=== PATIENT | female | born 1975 | race Caucasian/White ===

== ENCOUNTER → 2021-03-13 17:59 | Outpatient (CLI) | payer MEDICARE, MEDICAID, SELFPAY ==
[2021-03-13 18:40] LABS: Amphetamine Urine VISTA NEGATIVE (<1000 ng/mL); Barbiturate Urine VISTA NEGATIVE (< 200 ng/mL); Benzodiazepine Urine VISTA NEGATIVE (< 200 ng/mL); Cocaine Urine VISTA NEGATIVE (< 300 ng/mL); Ecstacy Urine VISTA NEGATIVE (< 500 ng/mL); Methadone Urine VISTA NEGATIVE (< 300 ng/mL); PCP Urine VISTA NEGATIVE (< 25 ng/mL); THC Urine VISTA NEGATIVE (< 50 ng/mL); Vista UDS pH Range 5
== END ==
PROVIDERS: Visit Provider Anesthesiology Pain Medicine
DX: F11.20 Opioid dependence, uncomplicated (principal)
CPT/HCPCS: 80307

== ENCOUNTER 2021-08-03 08:50 | Day surgery (SDC) | payer MEDICARE, MEDICAID, SELFPAY ==
[2021-08-03] VITALS (12 sets, daily range): BP systolic 80–142; BP diastolic 63–99; PULSE 74–83; RESP 16–18; TEMP 36.3–36.8; O2SAT 97–100; BMI 32.2
--- NOTE | 2021-08-03 09:40 | RAD_ITS ---
PROCEDURE: Pain pump insertion. DATE OF EXAMINATION: 01/31/2022. INDICATION: Female, 46 years old. Chronic back pain. FLUOROSCOPY TIME (if supplied): (51 seconds.) minutes/seconds. 4 images were obtained. RAD/Spine 1 View Any Level IMPRESSION: Intraoperative imaging provided for pain pump insertion. Electronically Signed: Soto Akers MD at 14:12 [facility] ,
[2021-08-03 09:48] LABS: Internal QC Validated? YES +Cl - CLEAR BKGD; Pregnancy, Urine Negative Negative
[2021-08-03] MEDS: Lactated Ringers 1,000 ML 15 ML IV (09:58)
[2021-08-03] MEDS: 0.9% Normal Saline (Pres. free 10 ML Vial (11:06)
[2021-08-03] MEDS: Bupivacaine 0.25% 30 ML Vial (11:06)
[2021-08-03] MEDS: Lidocaine 1%/Epi 1:200 (30ml) 30 ML AMPUL (11:06)
== END 2021-08-03 23:59 | disposition home or self-care (01) ==
LOC: SDC 08:59 → AC 09:00
PROVIDERS: Anesthesiology; PCP Family Medicine; Referring Provider Anesthesiology Pain Medicine; Visit Provider Anesthesiology Pain Medicine
PROC: (CPT 62362; principal; 2021-08-03 09:25)
DX: M96.1 Postlaminectomy syndrome, not elsewhere classified (principal); M19.90 Unspecified osteoarthritis, unspecified site; Z79.899 Other long term (current) drug therapy; I10 Essential (primary) hypertension
CPT/HCPCS: 62362; 00630; 72020; 76000; 81025; J7120; A4216; J2274; J2405; J3490

== ENCOUNTER → 2023-03-25 | Outpatient (CLI) | payer OTHER, MEDICARE, MEDICAID, SELFPAY ==
[2023-03-25 13:22] LABS: Amphetamine Urine VISTA NEGATIVE (<1000 ng/mL); Barbiturate Urine VISTA NEGATIVE (< 200 ng/mL); Benzodiazepine Urine VISTA NEGATIVE (< 200 ng/mL); Cocaine Urine VISTA NEGATIVE (< 300 ng/mL); Ecstacy Urine VISTA NEGATIVE (< 500 ng/mL); Methadone Urine VISTA NEGATIVE (< 300 ng/mL); PCP Urine VISTA NEGATIVE (< 25 ng/mL); THC Urine VISTA NEGATIVE (< 50 ng/mL); Vista UDS pH Range 6
== END | disposition home or self-care (01) ==
LOC: LAB 11:57
PROVIDERS: PCP Family Medicine; Referring Provider Anesthesiology Pain Medicine; Visit Provider Anesthesiology Pain Medicine
DX: F11.20 Opioid dependence, uncomplicated (principal)
CPT/HCPCS: 80307

== ENCOUNTER 2023-04-10 15:50 | Emergency (ER) | payer MEDICARE, MEDICAID, SELFPAY ==
[2023-04-10 15:52] VITALS: BP 147/91; PULSE 95; RESP 18; TEMP 36.8; O2SAT 100; BMI 38.9
--- NOTE | 2023-04-10 17:09 | EKG12_ITS ---
Test Reason : PAIN Blood Pressure : / mmHG Vent. Rate : 088 BPM Atrial Rate : 088 BPM P-R Int : 168 ms QRS Dur : 106 ms QT Int : 400 ms P-R-T Axes : 057 031 058 degrees QTc Int : 484 ms Normal sinus rhythm Nonspecific T wave abnormality Prolonged QT Abnormal ECG Confirmed by CYNTHIA SHAH, GORDON ([id number]), index editor JULIANNA BUTTS ([id number]) on 04/15/2023 12:22:01 PM Referred By: Confirmed By:GORDON MARIE MD
--- NOTE | 2023-04-10 17:09 | EDS_ITS ---
HPI History of Present Illness Chief Complaint: Other, Pain/Inj Detail of Chief Complaint: Staying to have her pain pump removed and complaint of shortness of breath Informant: patient Narrative Narrative: Patient presents to the emergency department with complaint of some shortness of breath with exertion and generalized weakness. She complains of intermittent chest pain. Patient believes that the cause of her symptoms is her pain pump which she has had for the last 2 years. Patient wants to have her pain pump removed. Patient states that she has an advocate and has not been able to make an appointment with her apprentice painter brush. Prior to my evaluating the patient nursing staff did call her apprentice painter brush office and we were told all she needed to do was make an appointment with his office and they would be happy to discuss removing her pain pump. [facility] Medical History (Updated 04/10/23 @ 19:[address] Yao Larios, ) Ambulates with cane Anxiety Arthritis Back pain Cardiology follow-up encounter COVID DDD (degenerative disc disease), cervical DDD (degenerative disc disease), lumbar Dietary restriction Gastric reflux History of CHF (congestive heart failure) History of echocardiogram History of GI bleed History of pain when walking History of stress test History of ulceration Hypertension Leg cramps Migraine headache Restless legs Shortness of breath on exertion Smoker Thyroid disease Wears glasses Wears partial dentures Home Medications albuterol (refill) 90 mcg/actuation aerosol inhaler 90 mcg inhalation PRN PRN SOB 08/01/21 [History Last Taken Unknown] alprazolam 1 mg tablet (Xanax) 1 mg PO BID PRN Anxiety 08/01/21 [History Last Taken Unknown] carvedilol 12.5 mg tablet (Coreg) 12.5 mg PO BID 08/01/21 [History Last Taken 08/03/21 07:00] dextroamphetamine-amphetamine 20 mg tablet (Adderall) 20 mg PO BID 08/01/21 [History Last Taken Unknown] ergocalciferol (vitamin D2) 1,250 mcg (50,000 unit) capsule (Vitamin D2) 1,250 mcg PO FR 08/01/21 [History Last Taken Unknown] furosemide 40 mg tablet 40 mg PO BID 08/01/21 [History Last Taken 08/03/21 07:0 0] levothyroxine 100 mcg tablet 100 mcg PO DAILY 08/01/21 [History Last Taken Unknown] lisinopril 5 mg tablet 5 mg PO DAILY 08/01/21 [History Last Taken Unknown] omeprazole 20 mg tablet,delayed release 20 mg PO DAILY 08/01/21 [History Last Taken Unknown] oxycodone myristate 18 mg capsule sprinkle extended release 12hr(DON'T CRUSH) (Xtampza ER) 18 mg PO BID 08/01/21 [History Last Taken Unknown] potassium chloride 10 mEq tablet,extended release 20 meq PO DAILY 08/01/21 [History Last Taken Unknown] rizatriptan 10 mg tablet 10 mg PO Q2H PRN MIGRAINES 08/01/21 [History Last Taken Unknown] Allergy/AdvReac Type Severity Reaction Status Date / Time hydromorphone [From Dilaudid] AdvReac PT UNSURE Verified 04/10/23 15:52 OF REACTION Surgical History (Updated 08/01/21 @ 11:05 by Margy Riley) History of History of laparoscopic cholecystectomy Hx of decompressive lumbar laminectomy Hx of fusion of cervical spine Social History Smoking Status: Current every day smoker tobacco type: cigarettes ROS ROS ED Review of Systems ROS Unobtainable: other Constitutional Constitutional ED: Reports lethargy; Denies chills, fever(s), sweats or weight loss Eyes Eyes: Denies blurry vision, change in vision or diplopia ENT ENT ED: Denies rhinorrhea or sore throat Cardiovascular Cardiovascular: Reports chest pain; Denies orthopnea or racing heartbeat Respiratory/Chest Respiratory/Chest: Reports dyspnea and dyspnea on exertion; Denies cough, orthopnea or sputum Gastrointestinal Gastrointestinal: Denies abdominal pain, diarrhea, nausea or vomiting Genitourinary Genitourinary ED: Denies dysuria, hematuria or urinary frequency Musculoskeletal Musculoskeletal: Denies arthralgias, back pain, myalgias or neck pain Integumentary Denies abscess, Abrasions or rash Neurologic Neurologic: Denies headache(s) or weakness Psychiatric Psychiatric: Denies anxiety, depression or suicidal thoughts Endocrine Endocrinology: Denies polydipsia, polyphagia or polyuria Hematologic/Lymphatic Hematologic/Lymphatic: Denies easy bleeding, easy bruising or lymphadenopathy Allergic/Immunologic Allergic/Immunologic ED: Denies mouth swelling, tongue swelling or urticaria EXAM Physical Exam Const Vital Signs: 04/10/23 15:52 04/10/23 17:04/10/23 18:43 Temperature 98.3 F Temperature Source Temporal Pulse Rate 95 81 Respiratory Rate 18 16 Respiratory Effort Normal Non-Labored Respiratory Pattern Normal Blood Pressure 147/91 H 137/62 H Blood Pressure Mean 109 87 Pulse Ox 100 97 Oxygen Delivery Method Room Air Room Air Positive well nourished and well developed General Appearance ED: well developed and NAD HEENT Reports TM's clear and moist mucous membranes normocephalic and atraumatic; Negative for trauma or tenderness Tympanic Membrane ED: Yes TM's clear Eyes PERRL and EOMs intact bilaterally General Eye ED: Negative for pale conjunctiva or scleral icterus Neck no lymphadenopathy, supple and no JVD General: Negative for tenderness Chest Wall inspection of chest normal and palpation of chest normal Chest: Negative for tenderness Resp normal respiratory effort and clear to auscultation bilaterally Effort and Inspection: Negative for respiratory distress or pain with movement Auscultation: Negative for rhonchi, wheezes or diminished lung sounds Cardio regular rate, regular rhythm, S1 normal heart sound, S2 normal heart sound and no murmurs Peripheral Pulses: pulses 2+ throughout GI normal to inspection, nondistended, normoactive bowel sounds, soft to palpation, non-tender, non-distended and no masses Back/Spine no CVA tenderness and no thoracic nor lumbar tenderness Extremity normal to inspection General Extremety ED: Negative for edema General Extremity: Negative for edema Neuro oriented x3, CN's II-XII intact bilaterally, no sensory deficits noted and gait normal Sensorium / Orientation: awake, alert, oriented to person, oriented to place and oriented to time Motor Exam: strength 5/5 throughout and strength abnormal Psych mental status grossly normal Skin no rashes or lesions noted and no wounds MDM MDM MDM Narrative Medical decision making narrative: Patient presents requesting that her pain pump be removed which I explained to her would not happen in the emergency department. She has had this pain pump for 2 years and her apprentice painter brush would be happy to see her in the office and discuss taking it out. Patient then started complaining of exertional dyspnea and fear that she was in congestive heart failure. Clinically she did not appear to be in congestive heart failure. I did obtain an EKG that showed a sinus rhythm with a rate of [address] changes. CBC with differential was unremarkable. Chemistries unremarkable. Troponin was normal and her BNP was normal. Chest x-ray was unremarkable. This point discussed results with patient. She does have a low potassium of 2.3. I did order 60 mEq p.o. Patient does take daily potassium and states she did not take it today and she does take Lasix. Patient states she has been low before. I discussed admitting her for IV potassium and she states that she does not want to be admitted and wants to go home she will follow-up with her primary care physician to check her levels again within the week. Our nursing staff called patient's apprentice painter brush Dr. Joy and made her an appointment for April 22 at 1:45 PM for follow-up regarding her morphine pain pump Lab Data Attestation: I reviewed the patient's lab results. Labs: Laboratory Results - last 24 hr 04/10/23 17:30 WBC 10.9 RBC 4.89 Hgb 14.0 Hct 42.8 MCV 87.5 MCH 28.6 MCHC 32.7 RDW Std Deviation 40.4 RDW Coeff of Augustine 12.5 Plt Count 247 MPV 9.6 Immature Gran % (Auto) 0.700 Neut % (Auto) 67.6 Lymph % (Auto) 22.3 [place]oshone % (Auto) 7.1 Eos % (Auto) 1.9 Baso % (Auto) 0.4 Absolute Neuts (auto) 7.4 Absolute Lymphs (auto) 2.43 Nucleated RBC % 0 Sodium 137 Potassium 2.3 L* Chloride 99 Carbon Dioxide 31.0 Anion Gap 7 BUN 19 H Creatinine 0.92 Estim Creat Clear Calc 58.50 Est GFR (MDRD) Af Amer 84 Est GFR (MDRD) Non-Af 69 BUN/Creatinine Ratio 20.7 H Glucose 96 Calcium 9.0 Troponin I High Sens 9 B-Natriuretic Peptide 6.2 Radiography Diagnostic Testing: Clinical Impression(s) from Imaging Studies Chest X-Ray 04/10/23 17:17 IMPRESSION: No radiographic evidence of acute cardiopulmonary disease. Electronically Signed: Lucia Watson MD at 17:51 EDT Reading Location ID and State: [id number] / Tel , Service support , 1 view chest x-ray obtained interpreted by myself as no evidence of infiltrate or pneumothorax or acute disease process. Radiology in agreement. EKG Initial EKG: Attestation: I personally reviewed and interpreted this EKG as follows: Comments: Sinus rhythm with a rate of [address] changes Discharge Plan Triage Chief Complaint: Other, Pain/Inj ED Provider: Yao Larios Dx/Rx/DC Orders Clinical Impression: Acute dyspnea, Acute hypokalemia Instructions: ED Dyspnea, ED Hypokalemia Prescriptions: No Action furosemide 40 mg Tablet 40 mg PO BID carvedilol [Coreg] 12.5 mg Tablet 12.5 mg PO BID alprazolam [Xanax] 1 mg Tablet 1 mg PO BID PRN (Reason: Anxiety) rizatriptan 10 mg Tablet 10 mg PO Q2H PRN (Reason: MIGRAINES) potassium chloride 10 mEq Tablet Extended Release 20 meq PO DAILY levothyroxine 100 mcg Tablet 100 mcg PO DAILY dextroamphetamine-amphetamine [Adderall] 20 mg Tablet 20 mg PO BID lisinopril 5 mg Tablet 5 mg PO DAILY ergocalciferol (vitamin D2) [Vitamin D2] 1,250 mcg (50,000 unit) Capsule 1,250 mcg PO FR albuterol (refill) 90 mcg/actuation Aerosol 90 mcg INHALATION PRN PRN (Reason: SOB) omeprazole 20 mg Tablet,Delayed Release (Dr/Ec) 20 mg PO DAILY Xtampza ER 18 mg Cap,Sprinkl,Er12hr(Dont Crush) 18 mg PO BID Primary Care Provider: Casey Davis Referrals: Casey Davis MD [Primary Care Provider] - 3-5 Days Activity Restrictions/Additional Instructions: Follow-up with your primary care physician to have your potassium checked again within the next 3 to 5 days. Please take your daily potassium. Disposition Disposition: Home, Self Care Discharge Date/Time: 04/10/23 19:55
--- NOTE | 2023-04-10 17:17 | RAD_ITS ---
INDICATION: dyspnea EXAMINATION/TECHNIQUE: X-RAY - XR Chest 1 View COMPARISON: FINDINGS: LINES/DEVICES: None. LUNGS: No consolidation, edema or effusion. No pneumothorax. MEDIASTINUM AND CARDIOVASCULAR STRUCTURES: Cardiac silhouette not enlarged. Central airways and mediastinal contour are unremarkable. BONES AND SOFT TISSUES: Unremarkable. RAD/Chest 1 View (Portable) IMPRESSION: No radiographic evidence of acute cardiopulmonary disease. Electronically Signed: Lucia Watson MD at 17:51 EDT Reading Location ID and State: [id number] / Tel , Service support ,
--- NOTE | 2023-04-10 17:21 | ED.RN ---
no old ekgs.
[2023-04-10 17:42] LABS: Absolute Lymphocyte Count 2.43 X10^3/uL (0.83-4.51); Absolute Neutrophil Count 7.4 X10^3/uL (2.0-7.7); Basophil# 0.04 X10^3/uL; Basophil% 0.4 % (0-1); Eosinophil# 0.21 X10^3/uL; Eosinophils% 1.9 % (0-5); Hematocrit 42.8 % (37-47); Lymphocyte # 2.43 X10^3/ul (0.83-4.51); Lymphocyte % 22.3 % (19-41); Mean Corp Hgb Conc 32.7 g/dL (32-36); Mean Corpuscular Hgb 28.6 pg (27.0-32.0); Mean Corpuscular Volume 87.5 fL (81-99); Mean Platelet Vol. 9.6 fl (6.2-12.0); Monocyte# 0.78 X10^3/uL; Monocyte% 7.1 % (0-10); NRBC Flagged by Analyzer 0 % (0-5); Neutrophil # 7.38 X10^3/uL (2.7-7.7); Neutrophil % 67.6 % (47-70); Platelet Count 247 K/mm3 (150-450); RBC Distribution Width CV 12.5 % (11.6-14.6); RBC Distribution Width SD 40.4 fl (35.1-43.9); Red Blood Count 4.89 M/mm3 (4.2-5.4); White Blood Count 10.9 K/mm3 (4.4-11.0)
[2023-04-10 18:05] LABS: Anion Gap 7 (5-15); BUN 19 mg/dL (7-18); BUN/Creat Ratio 20.7 RATIO (10-20); Chloride 99 mmol/L (98-107); Creatinine, Serum 0.92 mg/dL (0.55-1.02); EST Glomerular Filtration Rate 69 mL/min (>60); Est Glom Filt Rate - Afr Amer 84 mL/min (>60); Glucose 96 mg/dL (74-106); Potassium 2.3 mmol/L (3.5-5.1); Sodium Level 137 mmol/L (136-145); Troponin-I HS 9 pg/mL (3.0-54.0)
[2023-04-10 18:07] LABS: BNP,B-Type NATRIURETIC PEPTIDE 6.2 pg/mL (0-100)
[2023-04-10 18:43] VITALS: BP 137/62; PULSE 81; RESP 16; O2SAT 97
[2023-04-10] MEDS: Potassium Chloride Oral Tablet 20 MEQ 60 MEQ PO (19:52)
== END 2023-04-10 19:55 | disposition home or self-care (01) ==
PROVIDERS: Emergency Provider Emergency Medicine; PCP Family Medicine; Visit Provider Emergency Medicine
DX: R06.02 Shortness of breath (principal); I11.0 Hypertensive heart disease with heart failure; I50.9 Heart failure, unspecified; E87.6 Hypokalemia; F17.210 Nicotine dependence, cigarettes, uncomplicated; R07.9 Chest pain, unspecified
CPT/HCPCS: 71045; 80048; 83880; 84484; 85025; 93005; 99284

== ENCOUNTER 2024-02-20 10:46 | Day surgery (SDC) | payer MEDICARE, MEDICAID, SELFPAY ==
[2024-02-20] VITALS (8 sets, daily range): BP systolic 86–109; BP diastolic 56–79; PULSE 72–85; RESP 16–20; TEMP 36.2–37.1; O2SAT 97–100; BMI 35.9
[2024-02-20] MEDS: Lactated Ringers 1,000 ML 15 ML IV (11:32)
[2024-02-20 11:35] LABS: Internal QC Validated? YES +Cl - CLEAR BKGD; Pregnancy, Urine Negative Negative
--- NOTE | 2024-02-20 12:18 | PCM.PRE.AN2 ---
ASA Classification* ASA Classification ASA Classification: 3 Assessment & Plan Anesthesia* Anesthesia Assessment Anesthesia Assessment: Discussed sedation and/or anesthesia options, risks, benefits, and alternatives with patient/parents/legal guardian/POA. Questions invited. The patient/parents/legal guardian/POA seems to understand and agrees to proceed with anesthesia plan. Reviewed the physical assessment, medical history, allergy history and patient home medications list prior to surgery/procedure/anesthetic and documented any changes. Performed airway and anesthesia risk assessments. Anesthesia Type Anesthesia Type: MAC (has symptoms of increased icp per patient and mother, nuerology aware) Anesthesia Focused Assessment* Temperature: 98.8 F Pulse Rate: 85 Blood Pressure: 109/77 Respiratory Rate: 16 Pulse Ox: 98 Airway Assessment Mouth opens: >3 cm Mallampati Score: II Focused Labs Anesthesia Preop lab: CBC WBC 10.9 K/mm3 (4.4-11.0) 04/10/23 17:30 RBC 4.89 M/mm3 (4.2-5.4) 04/10/23 17:30 Hgb 14.0 g/dL (12.0-15.0) 04/10/23 17:30 Hct 42.8 % (37-47) 04/10/23 17:30 Plt Count 247 K/mm3 (150-450) 04/10/23 17:30 CHEMISTRY Potassium 2.3 mmol/L (3.5-5.1) L* 04/10/23 17:30 Sodium 137 mmol/L (136-145) 04/10/23 17:30 BUN 19 mg/dL (7-18) H 04/10/23 17:30 Creatinine 0.92 mg/dL (0.55-1.02) 04/10/23 17:30 Glucose 96 mg/dL (74-106) 04/10/23 17:30 COAG Urine Test Negative Negative 02/20/24 11:15 Pre-Assessment Diagnosis/Proposed Procedure Planned Operative Procedure(s): PAIN PUMP REMOVAL Anesthesia History Anesthesia History - professional skater: Anesthesia History - professional skater Hx Hospitalization Yes: 01/2024 SEIZURE 02/13/24 11:51 Any Problems With Anesthesia No 02/13/24 11:51 Cholinesterase deficiency No 02/13/24 11:51 You/Your Family Experience No 02/13/24 11:51 fever (hyperthermia) with Relationship Recent Exposure to Contagious No 02/20/24 11:22 Disease Does patient have nerve No: PAIN PUMP NOT WORKING 02/13/24 11:51 stimulator Patient instructed to have device shut off --Does patient have Pacemaker No 02/20/24 11:22 or ICD? When Was Last Pacemaker Check QUESTION #4 FULL TEXT: You/Your Family Experience fever (hyperthermia) with Anesthesia Last Oral Intake Last Oral intake: Last Oral Intake NPO since 05:00 02/20/24 11:22 Meds taken in AM with sips of Yes 02/20/24 11:22 water? Meds patient instructed to take am of surgery PONV PONV - professional skater: PONV - professional skater Female Yes 02/13/24 11:51 HX of Motion Sickness Yes 02/13/24 11:51 HX of N/V After Surgery No 02/13/24 11:51 Non-Smoker No 02/13/24 11:51 Duration of Surgery greater No 02/13/24 11:51 than 60 minutes Number of Risk Factors 2 02/13/24 11:51 PONV Score Moderate Risk 02/13/24 11:51 Height & Weight Height & Weight: Anesthesia: Height & Weight Height 5 ft 2 in 02/20/24 11:22 Weight: 89.2 kg 02/20/24 11:22 Body Mass Index (BMI) 35.9 02/20/24 11:22 Respiratory Assessment Respiratory Assessment - professional skater: Respiratory Tract Infection Hx - professional skater Hx Respiratory Tract Infection No 02/13/24 11:51 STOP Sleep Apnea STOP Sleep Apnea - professional skater: STOP Sleep Apnea - professional skater Hx Hypertension Yes: CONTROLLED WITH MED 02/13/24 11:51 Hx Sleep Apnea No 02/13/24 11:51 CPAP BIPAP Do you snore loudly (louder Yes 02/13/24 11:51 than talking or can be heard Do you often feel tired/ Yes 02/13/24 11:51 fatigued/ sleepy during daytime? Has anyone observed you stop No 02/13/24 11:51 breathing during sleep? STOP Results Positive 02/13/24 11:51 QUESTION #5 FULL TEXT : Do you snore loudly (louder than talking or can be heard through closed doors)? Tobacco Use History Tobacco Use History - professional skater: Tobacco Use History - professional skater Tobacco Use Smoking Status Current some day smoker 02/13/24 11:51 Hx Tobacco Use Yes 02/13/24 11:51 Years Smoking Packs Smoked per Day Smoking Cessation Date was within the last 15 years Hx Smoking Cessation Date Hx Smoking Cessation No 02/13/24 11:51 Counseling Hematologic Medial History Hematologic Hx - professional skater: Hematologic Medical Hx - shopper Hx of Blood Transfusion Yes 02/13/24 11:51 Hx of Transfusion in last 3 No 02/13/24 11:51 Months Date of Last Transfusion (if within last 3 months) Ever experience any problems No 02/13/24 11:51 with transfusion(s)? Specify any problems Hx of Preganancy in last 3 No 02/13/24 11:51 Months Nurse Filling Out Transfusion DSCHRIBER 02/13/24 11:51 & Questions: Date: 02/13/24 02/13/24 11:51 Time: 11:54 02/13/24 11:51 Patient unable to answer at this time (ie. confused, unrespo /Reproduction History /Reproductive History - professional skater: /Reproductive Hx- professional skater Hx Now No 02/13/24 11:51 Gestational Age (in weeks): EDC: Hx Hx Para Hx Section SAB No 02/13/24 11:51 Active Medications Active Medications: Current Medications Generic Name Dose Route Start Last Admin Trade Name Freq PRN Reason Stop Dose Admin Lactated Ringer's 1,000 mls @ 15 mls/hr 02/20/24 11:00 02/20/24 11:32 IV 15 mls/hr .Q48H CARLOS Administration Cefazolin Sodium 2 gm/ Sodium 110 mls @ 150 mls/hr 02/20/24 11:45 Chloride IV 02/20/24 12:28 PREOP ONE PFSH Medical History (Updated 02/13/24 @ 12:07 by Margy Riley) Abnormal gait Blackout Seizures Slurred speech ADHD Brain tumor Fracture Walker as ambulation aid COVID Wears glasses Wears partial dentures Anxiety Thyroid disease Arthritis Restless legs Back pain Migraine headache DDD (degenerative disc disease), lumbar DDD (degenerative disc disease), cervical Dietary restriction History of ulceration History of GI bleed Gastric reflux Smoker Shortness of breath on exertion Leg cramps History of pain when walking History of echocardiogram History of stress test Cardiology follow-up encounter Hypertension History of CHF (congestive heart failure) Home Medications ?Medication ?Instructions ?Recorded ?Last Taken ?Type albuterol (refill) 90 90 mcg inhalation PRN PRN SOB 08/01/21 Unknown History mcg/actuation aerosol inhaler alprazolam 1 mg tablet (Xanax) 1 mg PO BID PRN Anxiety 08/01/21 Unknown History carvedilol 12.5 mg tablet (Coreg) 12.5 mg PO BID 08/01/21 02/20/24 History dextroamphetamine-amphetamine 20 20 mg PO BID 08/01/21 Unknown History mg tablet (Adderall) ergocalciferol (vitamin D2) 1,250 1,250 mcg PO FR 08/01/21 Unknown History mcg (50,000 unit) capsule (Vitamin D2) furosemide 40 mg tablet 40 mg PO BID 08/01/21 08/03/21 07:00 History levothyroxine 100 mcg tablet 100 mcg PO DAILY 08/01/21 02/20/24 05:00 History omeprazole 20 mg tablet,delayed 20 mg PO DAILY 08/01/21 02/19/24 History release potassium chloride 10 mEq 20 meq PO DAILY 08/01/21 Unknown History tablet,extended release rizatriptan 10 mg tablet 10 mg PO Q2H PRN MIGRAINES 08/01/21 Unknown History fluticasone propionate 50 2 spray intranasal PRN PRN nasal 02/13/24 Unknown History mcg/actuation nasal congestion spray,suspension levetiracetam 1,000 mg tablet 1,000 mg PO BID 02/13/24 02/20/24 05:00 History metaxalone 800 mg tablet 800 mg PO BID 02/13/24 Unknown History methadone 5 mg tablet 5 mg PO 4X/DAY 02/13/24 Unknown History metoprolol tartrate 25 mg tablet 25 mg PO BID 02/13/24 Unknown History oxycodone 5 mg tablet 5 mg PO TID 02/13/24 Unknown History promethazine 25 mg tablet 25 mg PO TID PRN PRN nausea and 02/13/24 Unknown History vomiting Allergy/AdvReac Type Severity Reaction Status Date / Time hydromorphone (From Dilaudid) AdvReac PT UNSURE Verified 02/13/24 11:42 OF REACTION Surgical History (Updated 02/13/24 @ 12:07 by Margy Riley) Hx of exploratory laparotomy History of esophagogastroduodenoscopy (EGD) History of surgery History of History of laparoscopic cholecystectomy Hx of fusion of cervical spine Hx of decompressive lumbar laminectomy Social History Smoking Status: Current some day smoker tobacco type: cigarettes Review of Systems (Anesthesia) ROS Narrative System reviewed and no additional complaints, except as documented.
[2024-02-20] MEDS: Lidocaine 0.5%/Epi 1:200 (50ml 50 ML Vial INFILT (12:45)
[2024-02-20 12:46] LABS: Potassium 4.4 mmol/L (3.5-5.1)
[2024-02-20] MEDS: Cefazolin 2 GM in 0.9% Normal Saline (100mL Bag) 100 ML IV (13:03)
--- NOTE | 2024-02-20 13:49 | PCM.POST.ANE ---
Anesthesia: Postop Eval I Current Vital Signs Temperature: 98.2 F Pulse Rate: 76 Blood Pressure: 86/56 Respiratory Rate: 20 Pulse Ox: 100 Oxygen Delivery Method: Room Air Assessment Airway patent: Yes Spontaneous unlabored respirations: Yes Mental status: Awake and Calm nausea: No Vomiting: No Anesthesia Complication: No Fluid Hydration Crystalloid volume administer (ml): 900 Total IV fluid infused: 900 Progress Note Anesthesia document: Postop Eval 1 completed: Yes
--- NOTE | 2024-02-20 13:56 | POSTOPAN2_ITS ---
Anesthesia Postop Eval I Sum Postop Eval Completion status Anesthesia document: Postop Eval 1 completed: Yes Anesthesia Postop Eval I Summary Anesthesia Postop Eval I Summary: Anesthesia Postop Eval I: Assessment Summary Airway patent Yes 02/20/24 13:50 AGRONOMY RESEARCH [email or web address] Spontaneous unlabored Yes 02/20/24 13:50 AGRONOMY RESEARCH MANAGER.JDEF respirations Mental status Awake,Calm 02/20/24 13:50 AGRONOMY RESEARCH MANAGER.JDEF nausea No 02/20/24 13:50 AGRONOMY RESEARCH MANAGER.JDEF Vomiting No 02/20/24 13:50 AGRONOMY RESEARCH MANAGER.JDEF Anesthesia Postop Eval I: Fluid Summary Crystalloid volume administer 900 02/20/24 13:50 AGRONOMY RESEARCH MANAGER.JDEF (ml) Colloids volume administered ( ml) Blood Product volume administered (ml) Total IV fluid infused 900 02/20/24 13:50 AGRONOMY RESEARCH MANAGER.JDEF Anesthesia Postop Eval I: Summary Notes Anesthesia Complication No 02/20/24 13:50 AGRONOMY RESEARCH MANAGER.JDEF Anesthesia Complication Comment: Post-operative progress note Anesthesia: Postop Eval II Evaluation Mental status: Awake Pain Level: 0 nausea: No Vomiting: No
--- NOTE | 2024-02-20 13:56 | PCM.POSTANE2 ---
Anesthesia Postop Eval I Sum Postop Eval Completion status Anesthesia document: Postop Eval 1 completed: Yes Anesthesia Postop Eval I Summary Anesthesia Postop Eval I Summary: Anesthesia Postop Eval I: Assessment Summary Airway patent Yes 02/20/24 13:50 LINUX SYSTEM [email or web address] Spontaneous unlabored Yes 02/20/24 13:50 LINUX SYSTEM ADMIN.JDEF respirations Mental status Awake,Calm 02/20/24 13:50 LINUX SYSTEM ADMIN.JDEF nausea No 02/20/24 13:50 LINUX SYSTEM ADMIN.JDEF Vomiting No 02/20/24 13:50 LINUX SYSTEM ADMIN.JDEF Anesthesia Postop Eval I: Fluid Summary Crystalloid volume administer 900 02/20/24 13:50 LINUX SYSTEM ADMIN.JDEF (ml) Colloids volume administered ( ml) Blood Product volume administered (ml) Total IV fluid infused 900 02/20/24 13:50 LINUX SYSTEM ADMIN.JDEF Anesthesia Postop Eval I: Summary Notes Anesthesia Complication No 02/20/24 13:50 LINUX SYSTEM ADMIN.JDEF Anesthesia Complication Comment: Post-operative progress note Anesthesia: Postop Eval II Evaluation Mental status: Awake Pain Level: 0 nausea: No Vomiting: No
--- NOTE | 2024-02-20 14:31 | SUR.PHASEII ---
void in rr
== END 2024-02-20 14:32 | disposition home or self-care (01) ==
LOC: SDC 10:51 → AC 10:52
PROVIDERS: Anesthesiology; Referring Provider Anesthesiology Pain Medicine; Visit Provider Anesthesiology Pain Medicine
PROC: (CPT 62365; principal; 2024-02-20 12:45)
DX: G89.4 Chronic pain syndrome (principal); I11.0 Hypertensive heart disease with heart failure; I50.9 Heart failure, unspecified; R56.9 Unspecified convulsions; E03.9 Hypothyroidism, unspecified; K21.9 Gastro-esophageal reflux disease without esophagitis; F90.9 Attention-deficit hyperactivity disorder, unspecified type; F41.9 Anxiety disorder, unspecified; F17.210 Nicotine dependence, cigarettes, uncomplicated; E07.9 Disorder of thyroid, unspecified; Z79.890 Hormone replacement therapy; Z79.891 Long term (current) use of opiate analgesic; Z79.899 Other long term (current) drug therapy; Z86.16 Personal history of COVID-19
CPT/HCPCS: 62365; 81025; 84132; J7120; J2405